=== PATIENT | female | born 1995 | race Caucasian/White ===

== ENCOUNTER 2017-02-05 05:15 | Inpatient (IN) | payer OTHER ==
[2017-02-05] MEDS ORDERED: KEFZOL 1 GM/D5W 50 ML IV PRN (05:38)
[2017-02-05] MEDS ORDERED: PEPCID ONE (06:19)
[2017-02-05] MEDS ORDERED: BICITRA ONE (06:19)
[2017-02-05] MEDS: LR 1,000 ML IV SCH ×2 (06:20→07:09)
[2017-02-05] MEDS ORDERED: TORADOL ONE (06:29)
[2017-02-05] MEDS ORDERED: KEPPRA PO ONE (06:29)
[2017-02-05] MEDS ORDERED: BENADRYL ONE (06:29)
[2017-02-05] MEDS ORDERED: FENTANYL ONE (06:29)
[2017-02-05] MEDS ORDERED: ZOFRAN IV ONE (06:30)
[2017-02-05] MEDS ORDERED: PITOCIN 20 UNITS/LR 1,000 ML ONE (06:30)
[2017-02-05] MEDS ORDERED: PITOCIN ONE (06:30)
[2017-02-05] MEDS ORDERED: DURAMORPH ONE (06:30)
[2017-02-05] MEDS ORDERED: HEMABATE ONE (06:31)
[2017-02-05] MEDS ORDERED: METHERGINE ONE (06:31)
[2017-02-05 07:04] LABS: URINE SOURCE VOIDED
[2017-02-05 07:04] LABS: MANUAL DIFF NEEDED? NO
[2017-02-05 07:06] LABS: BASO% 0.1 % (0.0-0.8); EOS# 0.03 X1000 (0.0-0.7); EOS% 0.3 % (0.0-10.0); HEMATOCRIT 35.9 % (37.0-47.0); HEMOGLOBIN 12.6 g/dL (12.0-16.0); IMM GRAN# 0.06 X1000 (0.0-0.04); IMM GRAN% 0.7 % (0.0-0.5); LYMPH% 25.6 % (20.5-51.1); MCH 29.6 PG (27-31); MCHC 35.1 g/dL (33-37); MCV 84.3 FL (81-99); MONO# 0.84 X1000 (0.11-0.59); MONO% 9.8 % (1.7-9.3); MPV 11.8 FL (7.4-10.4); NEUT% 63.5 % (42.2-75.2); PLT 130 X1000 (130-400); RBC 4.26 XMIL (4.2-5.4)
[2017-02-05 07:09] LABS: BILIRUBIN URINE NEGATIVE (NEGATIVE); BLOOD URINE TRACE (NEGATIVE); CLARITY CLEAR (CLEAR); COLOR YELLOW; GLUCOSE URINE NEGATIVE (NEGATIVE); LEUKOCYTES URINE 2+ (NEGATIVE); NITRITE URINE NEGATIVE (NEGATIVE); PH URINE 6.5; PROTEIN URINE TRACE mg/dL (NEGATIVE); SP GRAVITY URINE 1.015; UROBILINOGEN URINE 4+(12 mg/dL)
[2017-02-05] MEDS ORDERED: MYLICON PO PRN (07:30)
[2017-02-05] MEDS ORDERED: DULCOLAX PR PRN (07:30)
[2017-02-05] MEDS ORDERED: PITOCIN IM PRN (07:30)
[2017-02-05] MEDS ORDERED: HYDROXYZINE IM PRN (07:30)
[2017-02-05] MEDS ORDERED: BOOSTRIX VACCINE IM ONE (07:30)
[2017-02-05] MEDS ORDERED: CYTOTEC PO PRN (07:30)
[2017-02-05] MEDS ORDERED: PHENERGAN IM PRN (07:30)
[2017-02-05] MEDS ORDERED: DEMEROL IM PRN (07:30)
[2017-02-05] MEDS ORDERED: PITOCIN 20 UNITS/LR 1,000 ML IV ONE (07:30)
[2017-02-05] MEDS ORDERED: M-M-R II VACCINE SUBQ ONE (07:30)
[2017-02-05] MEDS ORDERED: MOTRIN PO PRN (07:30)
[2017-02-05] MEDS ORDERED: DEMEROL PO PRN ×2 (07:30)
[2017-02-05] MEDS ORDERED: AMBIEN PO PRN (07:30)
[2017-02-05] MEDS ORDERED: ZOFRAN ODT PO PRN (08:24)
[2017-02-05] MEDS ORDERED: NARCAN INJ PRN (08:24)
[2017-02-05] MEDS ORDERED: ZOFRAN IV PRN ×2 (08:24)
[2017-02-05] MEDS ORDERED: BENADRYL IV PRN (08:24)
--- NOTE | 2017-02-05 08:49 | HISTORY AND PHYSICAL ---
HISTORY OF PRESENT ILLNESS: Francesca is a 21-year-old white female, 1, para 0, with estimated gestational age of 39 weeks, presents for primary section due to probable cephalopelvic disproportion as well as worsening seizure disorder. care has been overall uncomplicated, although the patient reports her seizures have been progressively worsening over the last few weeks. The patient is on Keppra and is followed by Neurology, both with [facility] at [facility] and Dr. Riojas. The patient and her mother are concerned about seizure disorder and labor and states her seizures substantially worsen with stress and request primary section. PAST MEDICAL HISTORY: As above. PAST SURGICAL HISTORY: None. ALLERGIES: No known drug allergies. MEDICATIONS: Keppra and vitamins. SOCIAL HISTORY: The patient is a smoker. PHYSICAL EXAMINATION: GENERAL: A thin white female in no apparent distress. VITAL SIGNS: Afebrile, vital signs stable. CARDIOVASCULAR: Regular rate and rhythm. LUNGS: Clear. ABDOMEN: Soft, nontender. PELVIC: Cervix is closed. PLAN: The patient is set up for primary section. The risks of surgery including bleeding, infection, anesthesia, blood transfusion were all discussed at length.
--- NOTE | 2017-02-05 08:58 | OPERATIVE NOTE ---
PROCEDURE DATE : 02/05/2017 PREOPERATIVE DIAGNOSES: 1. Intrauterine at 39 and 3/7 weeks. 2. Seizure disorder. POSTOPERATIVE DIAGNOSES: 1. Intrauterine at 39 and 3/7 weeks. 2. Seizure disorder. PROCEDURE PERFORMED: Primary low transverse section. SURGEON: Dr. Milton Hernandez [facility] HOSPITALIST: Dr. Mann Johnson ANESTHESIA: Spinal per Dr. Piper. ESTIMATED BLOOD LOSS: 500 mL. DRAINS: Lucero catheter. FINDINGS: A male was delivered in the cephalic position at 7:45. Apgars and weight were unavailable at the time of dictation. DESCRIPTION OF PROCEDURE: The patient was taken to the operating room. She was prepped and draped in the usual sterile fashion. After spinal anesthesia was administered without difficulty, a time-out was performed, and everybody in the room was in agreement as to stated procedure. A Pfannenstiel incision was carried out with a scalpel to the underlying fascia. The fascia was nicked in the midline and extended with Bullock scissors. The fascia was taken down off the underlying rectus muscle with Kandi clamps and Bullock scissors. The peritoneum was bluntly entered and extended under direct visualization with Bullock scissors. Bladder blade was placed, and peritoneal reflection of the bladder was taken down with Metzenbaum scissors. The uterus was scored in low transverse fashion. Amniotic membranes were bluntly ruptured and clear fluid noted. head and torso were easily delivered. was placed on the mother's abdomen. The cord was cut. The baby was bulb suctioned. The infant male was handed to awaiting Pediatric Team for further assessment. Placenta was delivered, and the uterus was externalized. Good uterine tone was encountered. The uterine incision was closed with #1 chromic in a running, locking fashion, #1 chromic in an imbricating fashion. Excellent hemostasis was noted. The uterus was returned to the abdominoperitoneal cavity. Copious irrigation with normal saline was used. Pericolic gutters were swept clean of blood clots. Excellent hemostasis was noted. All counts were correct. The peritoneum was closed with #1 chromic in a running fashion. Subcutaneous fat was copiously irrigated and hemostasis with electrocautery. The fascia was closed with #1 Vicryl in a running fashion, starting and ending in the midline. The subcutaneous fat was then closed with 3-0 Polysorb in interrupted fashion. The skin was closed with 3-0 Monocryl in a subcuticular fashion. The patient was taken to the recovery room in stable condition.
[2017-02-05] MEDS ORDERED: HYDROXYZINE PO ONE (10:19)
[2017-02-05] MEDS: HYDROXYZINE PO PRN ×2 (10:58→17:15)
[2017-02-05] MEDS: TORADOL IV SCH ×2 (14:01→20:03)
[2017-02-05] MEDS: MYLICON PO SCH ×4 (14:51→21:18)
[2017-02-05] MEDS: PERICOLACE PO SCH (21:18)
[2017-02-05] MEDS ORDERED: NS IV ONE ×2 (22:00→22:20)
[2017-02-05] MEDS ORDERED: KEPPRA IV ONE ×2 (22:00→22:20)
[2017-02-05] MEDS: KEPPRA PO SCH (22:00)
[2017-02-05] MEDS: PITOCIN 10 UNITS/LR 1,000 ML IV SCH (22:25)
[2017-02-06] MEDS: NORCO-10 PO PRN ×2 (01:24→10:18)
[2017-02-06] MEDS: TORADOL IV SCH (02:00)
[2017-02-06] MEDS ORDERED: PITOCIN 10 UNITS/LR 1,000 ML ONE (05:54)
[2017-02-06 05:55] LABS: MANUAL DIFF NEEDED? NO
[2017-02-06 06:15] LABS: BASO% 0.2 % (0.0-0.8); EOS# 0.05 X1000 (0.0-0.7); EOS% 0.6 % (0.0-10.0); HEMATOCRIT 29.1 % (37.0-47.0); HEMOGLOBIN 9.8 g/dL (12.0-16.0); IMM GRAN# 0.03 X1000 (0.0-0.04); IMM GRAN% 0.3 % (0.0-0.5); LYMPH# 1.79 X1000 (1.2-3.4); LYMPH% 20.1 % (20.5-51.1); MCH 28.7 PG (27-31); MCHC 33.7 g/dL (33-37); MCV 85.1 FL (81-99); MONO# 0.95 X1000 (0.11-0.59); MONO% 10.7 % (1.7-9.3); NEUT% 68.1 % (42.2-75.2); PLT 120 X1000 (130-400); RBC 3.42 XMIL (4.2-5.4)
[2017-02-06] MEDS: PITOCIN 10 UNITS/LR 1,000 ML IV SCH (06:25)
[2017-02-06] MEDS ORDERED: LR 1,000 ML IV SCH (07:31)
[2017-02-06] MEDS: MYLICON PO SCH ×5 (08:50→22:11)
[2017-02-06] MEDS: KEPPRA PO SCH ×2 (08:51→21:07)
[2017-02-06] MEDS ORDERED: PERCOCET-5 PO PRN (12:06)
[2017-02-06] MEDS: PERCOCET-10 PO PRN ×2 (16:09→19:42)
[2017-02-06] MEDS: PERICOLACE PO SCH ×2 (19:41→22:11)
[2017-02-07] MEDS: KEPPRA PO SCH (09:15)
[2017-02-07] MEDS: MYLICON PO SCH ×2 (09:31→12:47)
[2017-02-07 15:58] VITALS: BP 128/80
[2017-02-07] MEDS: PERCOCET-10 PO PRN (15:59)
--- NOTE | 2017-02-08 00:43 | DISCHARGE SUMMARY ---
ADMISSION DATE: 02/05/2017 DISCHARGE DATE: 02/07/2017 PRINCIPAL DIAGNOSIS: Intrauterine at 39+ 3 weeks. PRINCIPAL PROCEDURE: Primary low transverse section. HOSPITAL COURSE: The patient is admitted on 02/05/2017, for a scheduled primary low transverse section, secondary to likely cephalic pelvic disproportion. Procedure performed without complications. The patient was subsequently transferred to Mother/baby once deemed stable, where her postoperative course has remained uneventful. On postoperative day #2, the patient's pain is well controlled. She is ambulating without assistance. Her lochia is less than menses. She notes positive flatus and patient is tolerating a regular diet without nausea or vomiting. Vital signs were stable. The patient stable for discharge on postoperative day #2. CONDITION ON DISCHARGE: Stable. ALIMENTATION CAPACITY: Independent feeding capacity, independent locomotion capacity, independent rehab potential good, prognosis good. DISCHARGE MEDICATIONS: Include Percocet 5/325, 1 to 2 tabs p.o. q.6 hours p.r.n. pain. DISCHARGE INSTRUCTIONS: The patient is to maintain a regular diet. PHYSICAL ACTIVITY: As tolerated. The patient is to maintain pelvic rest x6 weeks. The patient is ordered to call or return if fever greater 100.4, heavy vaginal bleeding, foul smelling vaginal discharge, or any other acute changes. She is to be discharged home with orders to follow up with Dr. Hernandez in 2 weeks.
== END 2017-02-07 17:50 | disposition home or self-care (01) | DRG 766 ==
LOC: EEVIPCON → P.LD 05:15 → P.WC 02-06 11:24
PROVIDERS: ADMIT Obstetrics & Gynecology; ATTEND Obstetrics & Gynecology
PROC: 10D00Z1 Extraction of Products of Conception, Low, Open Approach (ICD-10-PCS; principal; 2017-02-05 07:30)
DX: O99.354 Diseases of the nervous system complicating childbirth (principal); F17.210 Nicotine dependence, cigarettes, uncomplicated; O33.9 Maternal care for disproportion, unspecified; G40.909 Epilepsy, unspecified, not intractable, without status epilepticus; Z37.0 Single live birth; Z3A.39 39 weeks gestation of pregnancy; O99.334 Smoking (tobacco) complicating childbirth; Z79.899 Other long term (current) drug therapy
CPT/HCPCS: 36415; 59025; 81003; 85025; 86592; 86850; 86900; 86901; J0690; J1200; J1885; J1953; J2210; J2274; J2405; J2590; J3010; J7120; S0028